=== PATIENT | male | born 1990 | race Caucasian/White ===

== ENCOUNTER → 2017-01-12 | Outpatient (REF) | payer OTHER | LOC: M LAB REF 13:10 | PROVIDERS: ATTEND Nurse Practitioner Family | DX: L02.415 Cutaneous abscess of right lower limb (principal) ==

== ENCOUNTER → 2018-07-16 | Outpatient (REF) | payer OTHER ==
[2018-07-17 10:45] LABS: HEPATITIS B SURFACE ANTIGEN NEGATIVE (NEGATIVE); HIV 1&2 SCREEN CENTAUR NEGATIVE (NEGATIVE)
== END ==
LOC: M LAB REF 16:37
DX: Z11.59 Encounter for screening for other viral diseases (principal); Z11.4 Encounter for screening for human immunodeficiency virus [HIV]

== ENCOUNTER 2018-10-03 12:58 | Emergency (ER) | payer OTHER ==
[~2018-10-03] VITALS: Ht 193 cm; Wt 141820.0 kg
[2018-10-03 14:46] VITALS: BP 142/82
--- NOTE | 2018-10-03 15:49 | REP ---
Left knee: Five views. History: Deformity after a fall. Findings: Five views of the left knee demonstrate no evidence of fracture. However, there is patella herman on the lateral film with irregularity and swelling along the course of the patellar tendon indicating patellar tendon disruption. Impression: Patella herman. Soft tissue swelling and irregularity in the region of the patellar tendon. Findings consistent with patellar tendon rupture. No fracture seen. Electronically Signed by Haider Desai MD 10/03/2018 05:25 P
== END 2018-10-03 14:47 | disposition home or self-care (01) ==
LOC: M ED 12:58
DX: S83.92XA Sprain of unspecified site of left knee, initial encounter (principal); W01.0XXA Fall on same level from slipping, tripping and stumbling without subsequent striking against object, initial encounter; Y92.410 Unspecified street and highway as the place of occurrence of the external cause

== ENCOUNTER → 2018-10-04 | Outpatient (CLI) | payer OTHER ==
--- NOTE | 2018-10-04 16:09 | REP ---
MRI left knee without contrast: History: Rule out patellar tendon rupture. Comparison is made with yesterday's radiographs demonstrating abnormally elevated patella consistent with patellar tendon rupture. Technique: Axial, coronal and sagittal imaging planes are utilized. T1 and T2-weighted scans were obtained with and without fat saturation. MRI findings: Patellar tendon is completely disrupted 1.6 cm distal to the lower pole of the patella. Redundant patellar tendon material is seen coursing posteriorly at the site of the disruption. There is considerable adjacent edema. The distal patellar segment does not appear to be retracted. There is a small to moderate joint effusion. Fluid is seen accumulating particularly at the medial aspect of the patella. Patella herman is seen as noted radiographically. The medial and lateral patellar retinacular structures appear intact. Quadriceps tendon appears intact. There is no visible medial or lateral collateral ligament disruption. Anterior and posterior cruciate ligaments are intact. Varicose superficial venous structures are noted in the medial soft tissues. There is a horizontal tear in the posterior horn and body of the medial meniscus. A posteromedial Gonzales's cyst is seen. No lateral meniscal tear is seen. No fracture is noted. Impression: Complete tear patellar tendon 1.6 cm distal to the lower pole of the patella. Patella herman. Joint effusion surrounding hematoma and edema. Gonzales's cyst. Medial meniscal tear. Electronically Signed by Haider Desai MD 10/04/2018 04:45 P
== END ==
LOC: M PLARAD 12:13
PROVIDERS: ATTEND Physician Assistant Medical
DX: S83.242A Other tear of medial meniscus, current injury, left knee, initial encounter (principal); M71.22 Synovial cyst of popliteal space [Baker], left knee; S86.112A Strain of other muscle(s) and tendon(s) of posterior muscle group at lower leg level, left leg, initial encounter; M25.462 Effusion, left knee; X58.XXXA Exposure to other specified factors, initial encounter; Y92.9 Unspecified place or not applicable

== ENCOUNTER 2018-10-31 09:45 | Outpatient (RCR) | payer OTHER | END 2018-11-07 | LOC: M PT 09:45 | PROVIDERS: ATTEND Physician Assistant | DX: Z51.89 Encounter for other specified aftercare (principal); Z47.89 Encounter for other orthopedic aftercare ==

== ENCOUNTER 2018-12-03 08:15 | Outpatient (RCR) | payer OTHER | END 2018-12-08 | LOC: M PT 08:15 | PROVIDERS: ATTEND Physician Assistant | DX: Z51.89 Encounter for other specified aftercare (principal); Z47.89 Encounter for other orthopedic aftercare ==

== ENCOUNTER → 2019-01-07 | Outpatient (RCR) | payer OTHER | LOC: M PT 12-16 12:00 | PROVIDERS: ATTEND Physician Assistant | DX: Z47.89 Encounter for other orthopedic aftercare (principal) ==

== ENCOUNTER 2019-01-31 07:30 | Outpatient (RCR) | payer OTHER | END 2019-02-07 | LOC: M PT 07:30 | PROVIDERS: ATTEND Orthopaedic Surgery | DX: Z47.89 Encounter for other orthopedic aftercare (principal) ==

== ENCOUNTER → 2020-10-12 | Outpatient (REF) | payer OTHER ==
[2020-10-12 18:35] LABS: HEPATITIS A ANTIBODY IGM NEGATIVE (NEGATIVE); HEPATITIS B CORE ANTIBODY IGM NEGATIVE (NEGATIVE); HEPATITIS B SURFACE ANTIGEN NEGATIVE (NEGATIVE); HEPATITIS C VIRUS ABY INDEX < 0.0 INDEX (<0.8)
== END ==
LOC: M LAB REF 16:21
PROVIDERS: ATTEND Nurse Practitioner Adult Health
DX: R94.5 Abnormal results of liver function studies (principal)

== ENCOUNTER → 2021-05-17 | Outpatient (CLI) | payer OTHER ==
--- NOTE | 2021-05-17 15:06 | REP ---
INDICATION: LS SPINE PAIN. COMPARISON: None. TECHNIQUE: Five views FINDINGS: There is bilateral L5 spondylolysis with a grade 1/2 L5 upon S1 spondylolisthesis. There is mild L5-S1 disc space narrowing. The remainder of the disc spaces are symmetric and relatively well maintained. Vertebral body height is within normal limits throughout. IMPRESSION: Chronic changes as described above. <Electronically signed by Federico Keenan > 05/17/21 [id number]
== END ==
LOC: M RAD 14:30
PROVIDERS: ATTEND Nurse Practitioner Adult Health
DX: M54.5 Low back pain (principal)

== ENCOUNTER → 2021-08-19 | Outpatient (REF) | payer OTHER | LOC: M SMT 13:06 | PROVIDERS: ATTEND Urology | DX: Z30.2 Encounter for sterilization (principal) ==

== ENCOUNTER → 2021-10-14 | Outpatient (REF) | payer OTHER ==
[2021-10-14 11:05] LABS: SEMEN APPEARANCE OPAQUE (OPAQUE); SEMEN VISCOSITY LIQUID (LIQUID); SEMEN VOLUME 3.8 ml (2.0-5.0); WBC CONCENTRATION <=1 M/ml (<=1 M/ml)
== END ==
LOC: M SMT 09:40
PROVIDERS: ATTEND Urology
DX: Z30.8 Encounter for other contraceptive management (principal)

== ENCOUNTER → 2022-04-03 | Outpatient (CLI) | payer OTHER | LOC: M RAD 10:00 | PROVIDERS: ATTEND Surgery | DX: M79.605 Pain in left leg (principal); R22.42 Localized swelling, mass and lump, left lower limb ==

== ENCOUNTER → 2023-02-06 | Outpatient (REF) | payer OTHER | LOC: M LAB REF 13:47 | PROVIDERS: ATTEND Physician Assistant Medical | DX: R53.83 Other fatigue (principal); M79.672 Pain in left foot ==

== ENCOUNTER 2024-04-26 13:46 | Emergency (ER) | payer OTHER ==
[~2024-04-26] VITALS: Ht 193 cm; Wt 144.2 kg
[2024-04-26 15:27] VITALS: TEMP 97.4
[2024-04-26] MEDS ORDERED: ANUS2.5C2 TOP (16:42)
[2024-04-26] MEDS ORDERED: MIRA3350 PO (16:42)
[2024-04-26 16:47] VITALS: BP 152/78; O2SAT 98
== END 2024-04-26 16:50 | disposition home or self-care (01) ==
LOC: M ED 13:46
DX: K64.8 Other hemorrhoids (principal); Z79.899 Other long term (current) drug therapy

== ENCOUNTER → 2024-09-25 | Outpatient (REF) | payer OTHER ==
[~2024-09-25] MED LIST: ANUS2.5C2 TOP; MIRA3350 PO
== END ==
LOC: M LAB REF 16:34
PROVIDERS: ATTEND Nurse Practitioner Adult Health
DX: F52.21 Male erectile disorder (principal)